=== PATIENT | male | born 1980 | race African-American/Black ===

== ENCOUNTER 2016-04-10 13:06 | Emergency (ER) | payer SELFPAY ==
[~2016-04-10] VITALS: Ht 180.3 cm; Wt 117.9 kg
[~2016-04-10 13:06] MED LIST: CYCL10TA2 PO; HYDR25TA9 PO
[2016-04-10 14:40] LABS: BASO % 1 % (0-3); EOS % 2 % (0-3); HEMATOCRIT 47.4 % (39.0-53.0); HEMOGLOBIN 16.1 g/dL (13.0-17.5); LYMPH # 2.5 x10^3/uL (1.0-4.8); LYMPH % 55 % (24-48); MEAN CORPUSCULAR HEMOGLOBIN 30 pg (25-35); MEAN CORPUSCULAR HGB CONC 34 g/dL (31-37); MEAN CORPUSCULAR VOLUME 88 fL (79-100); MONO % 7 % (0-9); NEUT % 35 % (31-73); PLATELET COUNT 177 x10^3/uL (140-400); RED BLOOD COUNT 5.37 x10^6/uL (4.30-5.70); WHITE BLOOD COUNT 4.5 x10^3/uL (4.0-11.0)
[2016-04-10] MEDS ORDERED: LIDO:MAALOX:DONNATAL 1:1:1 15 ML SINGLE DOSE SWSW ONE (14:45)
[2016-04-10] MEDS: NITROGLYCERIN SUBLINGUAL 0.4 MG BOTTLE OF 25. SL PRN ×3 (14:46→15:03)
[2016-04-10 14:59] LABS: CALCIUM 9.4 mg/dL (8.5-10.1); CREATININE 0.9 mg/dL (0.7-1.3); GFR 114.9; POTASSIUM 4.2 mmol/L (3.5-5.1)
[2016-04-10 15:04] LABS: ALBUMIN 3.9 g/dL (3.4-5.0); DIRECT BILIRUBIN 0.1 mg/dL (0.0-0.2); MAGNESIUM 1.9 mg/dL (1.8-2.4); TOTAL BILIRUBIN 0.9 mg/dL (0.2-1.0); TOTAL PROTEIN 7.6 g/dL (6.4-8.2)
[2016-04-10 15:11] LABS: CKMB INDEX 0.3 % (0-4)
--- NOTE | 2016-04-10 15:11 | RAD ---
EXAM: Chest one view. HISTORY: Chest pain. COMPARISON: 05/08/2015. FINDINGS: A frontal view of the chest is obtained. There are no confluent infiltrates. There are calcified granulomas in both nicolás and the left upper lobe. There is no pneumothorax or pleural effusion. The heart is not enlarged. IMPRESSION: 1. No confluent infiltrates.
[2016-04-10 15:15] LABS: BILIRUBIN,URINE NEGATIVE (NEG); GLUCOSE,URINE NEGATIVE (NEG); NITRITE,URINE NEGATIVE (NEG); PROTEIN,URINE NEGATIVE (NEG-TRACE); UROBILINOGEN,URINE 0.2 mg/dL (0.2 mg/dL)
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
[2016-04-10 15:25] LABS: BARBITURATES NEG (NEG); BENZODIAZEPINES NEG (NEG); CANNABINOIDS NEG (NEG); COCAINE NEG (NEG); METHADONE NEG (NEG); OPIATES NEG (NEG); PHENCYCLIDINE NEG (NEG)
[2016-04-10 15:28] LABS: BACTERIA,URINE 0 /HPF (0-FEW); RBC,URINE 0 /HPF (0-2); SQUAMOUS EPITHELIAL CELL,UR OCC /LPF; WBC,URINE OCC /HPF (0-4)
--- NOTE | 2016-04-10 15:39 | EKG ---
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
[2016-04-10 15:44] LABS: ETHANOL, URINE NEG (NEG)
[2016-04-10 16:09] VITALS: BP 111/62
== END 2016-04-10 16:18 | disposition home or self-care (01) ==
LOC: ER 13:06
DX: R07.2 Precordial pain (principal); M19.90 Unspecified osteoarthritis, unspecified site; I10 Essential (primary) hypertension; K21.9 Gastro-esophageal reflux disease without esophagitis; E78.5 Hyperlipidemia, unspecified; Z87.891 Personal history of nicotine dependence; Z79.899 Other long term (current) drug therapy; Z79.82 Long term (current) use of aspirin; Z88.8 Allergy status to other drugs, medicaments and biological substances; Z88.5 Allergy status to narcotic agent
CPT/HCPCS: 36415; 71010; 80048; 80076; 81001; 82553; 83690; 83735; 84443; 84484; 85027; 93005; 99285; G0481

== ENCOUNTER 2016-04-16 16:07 | Emergency (ER) | payer SELFPAY ==
[~2016-04-16] VITALS: Ht 180.3 cm; Wt 119.3 kg
[2016-04-16] MEDS ORDERED: FAMOTIDINE 20 MG TABLET. PO ONE (16:30)
[2016-04-16] MEDS ORDERED: LIDO:MAALOX:DONNATAL 1:1:1 15 ML SINGLE DOSE SWSW ONE (16:30)
[2016-04-16 16:35] LABS: BASO % 1 % (0-3); EOS % 2 % (0-3); HEMATOCRIT 50.1 % (39.0-53.0); HEMOGLOBIN 16.9 g/dL (13.0-17.5); LYMPH # 2.5 x10^3/uL (1.0-4.8); LYMPH % 51 % (24-48); MEAN CORPUSCULAR HEMOGLOBIN 30 pg (25-35); MEAN CORPUSCULAR HGB CONC 34 g/dL (31-37); MEAN CORPUSCULAR VOLUME 89 fL (79-100); MONO % 9 % (0-9); NEUT % 38 % (31-73); PLATELET COUNT 174 x10^3/uL (140-400); RED BLOOD COUNT 5.63 x10^6/uL (4.30-5.70); RED CELL DISTRIBUTION WIDTH 12.8 % (11.5-14.5); WHITE BLOOD COUNT 4.8 x10^3/uL (4.0-11.0)
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
[2016-04-16] MEDS ORDERED: BACL10TA PO (16:43)
[2016-04-16] MEDS ORDERED: TRAM1TAB4 PO (16:43)
[2016-04-16] MEDS ORDERED: NAPR500T3 PO (16:43)
[2016-04-16] MEDS ORDERED: PANT40TA5 PO (16:43)
[2016-04-16] MEDS ORDERED: LISI10TA2 PO (16:51)
[2016-04-16 16:54] LABS: CALCIUM 9.6 mg/dL (8.5-10.1); GFR 101.7; POTASSIUM 4.3 mmol/L (3.5-5.1)
[2016-04-16] MEDS ORDERED: OMEP20TA PO (17:25)
[2016-04-16 17:32] VITALS: BP 123/75
--- NOTE | 2016-04-17 06:11 | EKG ---
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
--- NOTE | 2016-04-17 09:00 | RAD ---
Indication: Chest pain Technique: Upright portable chest radiograph was obtained. Comparison is from April 10, 2016. Findings: The lungs are clear. The cardiopulmonary silhouette is within normal limits. The bony structures are intact. Leads overlie the patient. Impression: No active pulmonary disease.
== END 2016-04-16 17:33 | disposition home or self-care (01) ==
LOC: ER 16:07
DX: R07.89 Other chest pain (principal); I10 Essential (primary) hypertension; K21.9 Gastro-esophageal reflux disease without esophagitis; F17.210 Nicotine dependence, cigarettes, uncomplicated; F12.10 Cannabis abuse, uncomplicated; Z88.5 Allergy status to narcotic agent; Z88.8 Allergy status to other drugs, medicaments and biological substances
CPT/HCPCS: 36415; 71010; 80048; 84484; 85027; 93005; 99285-25

== ENCOUNTER 2016-07-08 07:39 | Emergency (ER) | payer SELFPAY ==
[~2016-07-08] VITALS: Ht 180.3 cm; Wt 119.3 kg
[~2016-07-08 07:39] MED LIST changes: +BACL10TA PO; +LISI10TA2 PO; +NAPR500T3 PO; +OMEP20TA8 PO; +PANT40TA5 PO; +TRAM1TAB4 PO
[2016-07-08 07:43] VITALS: BP 154/87
[2016-07-08] MEDS ORDERED: NAPROXEN 500 MG TABLET PO ONE (08:00)
[2016-07-08 08:20] LABS: NEGATIVE OBC STREP NEG; POSITIVE OBC STREP POS
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
== END 2016-07-08 08:31 | disposition home or self-care (01) ==
LOC: ER 07:39
DX: B34.9 Viral infection, unspecified (principal); J06.9 Acute upper respiratory infection, unspecified; I10 Essential (primary) hypertension; K21.9 Gastro-esophageal reflux disease without esophagitis; Z88.8 Allergy status to other drugs, medicaments and biological substances; Z88.6 Allergy status to analgesic agent
CPT/HCPCS: 87070; 87880; 99283

== ENCOUNTER 2017-02-03 09:12 | Emergency (ER) | payer SELFPAY ==
[2017-02-03 09:43] LABS: ADD MAN DIFF? NO
[2017-02-03 09:45] LABS: BASO % 1 % (0-3); EOS % 3 % (0-3); HEMATOCRIT 49.1 % (39.0-53.0); HEMOGLOBIN 16.6 g/dL (13.0-17.5); LYMPH % 51 % (24-48); MEAN CORPUSCULAR HEMOGLOBIN 30 pg (25-35); MEAN CORPUSCULAR HGB CONC 34 g/dL (31-37); MEAN CORPUSCULAR VOLUME 89 fL (79-100); MONO % 10 % (0-9); NEUT % 35 % (31-73); PLATELET COUNT 165 x10^3/uL (140-400); RED CELL DISTRIBUTION WIDTH 12.9 % (11.5-14.5); WHITE BLOOD COUNT 3.9 x10^3/uL (4.0-11.0)
[2017-02-03 09:48] LABS: BILIRUBIN,URINE NEGATIVE (NEG); GLUCOSE,URINE NEGATIVE (NEG); NITRITE,URINE NEGATIVE (NEG); PROTEIN,URINE NEGATIVE (NEG-TRACE)
[2017-02-03 09:54] LABS: BARBITURATES NEG (NEG); BENZODIAZEPINES NEG (NEG); CANNABINOIDS POS (NEG); COCAINE NEG (NEG); METHADONE NEG (NEG); OPIATES NEG (NEG); PHENCYCLIDINE NEG (NEG)
[2017-02-03 09:55] LABS: ETHANOL, URINE NEG (NEG)
[2017-02-03 09:59] LABS: ANION GAP 11 (6-14); BLOOD UREA NITROGEN 16 mg/dL (8-26); BUN/CREATININE RATIO 18 (6-20); CALCIUM 8.7 mg/dL (8.5-10.1); CARBON DIOXIDE 25 mmol/L (21-32); CHLORIDE 103 mmol/L (98-107); CREATININE 0.9 mg/dL (0.7-1.3); GFR 114.3; GLUCOSE 104 mg/dL (70-99); POTASSIUM 4.3 mmol/L (3.5-5.1); SODIUM 139 mmol/L (136-145)
[2017-02-03] MEDS: DICYCLOMINE 20 MG/2 ML AMPUL. IM (09:59)
[2017-02-03 10:04] LABS: ALK PHOS 61 U/L (46-116); ALT (SGPT) 83 U/L (16-63); AMYLASE 105 U/L (25-115); AST (SGOT) 44 U/L (15-37)
[2017-02-03 10:05] LABS: BACTERIA,URINE 0 /HPF (0-FEW); RBC,URINE 0 /HPF (0-2); SQUAMOUS EPITHELIAL CELL,UR FEW /LPF; WBC,URINE 0 /HPF (0-4)
== END 2017-02-03 10:25 | disposition home or self-care (01) ==
LOC: ER 09:12
DX: R10.84 Generalized abdominal pain (principal); R11.0 Nausea; K21.9 Gastro-esophageal reflux disease without esophagitis; I10 Essential (primary) hypertension; F17.210 Nicotine dependence, cigarettes, uncomplicated; F12.10 Cannabis abuse, uncomplicated; Z88.6 Allergy status to analgesic agent; Z88.8 Allergy status to other drugs, medicaments and biological substances
CPT/HCPCS: 36415; 80053; 80307; 81001; 82150; 83690; 85025; 96372; 99284-25; J0500

== ENCOUNTER 2019-05-17 15:18 | Emergency (ER) | payer SELFPAY ==
[~2019-05-17] VITALS: Ht 180.3 cm; Wt 99.0 kg
[~2019-05-17 15:18] MED LIST changes: +DICY10CA53 PO; +HYDR-2145 PO; -HYDR25TA9 PO; +NAPR-514 PO; -NAPR500T3 PO; -PANT40TA5 PO; +PANT40TA77 PO
[2019-05-17 15:20] VITALS: BP 149/92
[2019-05-17] MEDS ORDERED: CEPH-264 PO (16:01)
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
== END 2019-05-17 16:15 | disposition home or self-care (01) ==
LOC: ER 15:18
DX: L03.811 Cellulitis of head [any part, except face] (principal); R60.0 Localized edema; L29.9 Pruritus, unspecified; L73.9 Follicular disorder, unspecified; F12.90 Cannabis use, unspecified, uncomplicated; Z88.6 Allergy status to analgesic agent; Z88.8 Allergy status to other drugs, medicaments and biological substances; Z98.890 Other specified postprocedural states
CPT/HCPCS: 99283

== ENCOUNTER 2019-09-03 16:15 | Emergency (ER) | payer SELFPAY ==
[~2019-09-03] VITALS: Ht 180.3 cm; Wt 100.0 kg
[2019-09-03 16:15] VITALS: BP 133/81
[~2019-09-03 16:15] MED LIST changes: +CEPH-264 PO
[2019-09-03] MEDS ORDERED: NEOM10SO7 EACH EAR (16:50)
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
== END 2019-09-03 17:08 | disposition home or self-care (01) ==
LOC: ER 16:15
DX: H60.8X3 Other otitis externa, bilateral (principal); I10 Essential (primary) hypertension; F12.90 Cannabis use, unspecified, uncomplicated; Z98.890 Other specified postprocedural states; Z88.8 Allergy status to other drugs, medicaments and biological substances
CPT/HCPCS: 99283

== ENCOUNTER 2019-09-22 02:23 | Emergency (ER) | payer SELFPAY ==
[~2019-09-22] VITALS: Ht 180.3 cm; Wt 102.0 kg
[~2019-09-22 02:23] MED LIST changes: +NEOM10SO7 EACH EAR
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
[2019-09-22] MEDS ORDERED: cloNIDine HCL 0.1 MG TABLET PO ONE (04:15)
[2019-09-22 04:58] LABS: BASO % 1 % (0-3); EOS # 0.1 x10^3/uL (0.0-0.7); EOS % 2 % (0-3); HEMATOCRIT 43.8 % (39.0-53.0); LYMPH # 1.7 x10^3/uL (1.0-4.8); LYMPH % 42 % (24-48); MEAN CORPUSCULAR HEMOGLOBIN 31 pg (25-35); MEAN CORPUSCULAR HGB CONC 34 g/dL (31-37); MEAN CORPUSCULAR VOLUME 91 fL (79-100); MONO # 0.4 x10^3/uL (0.0-1.1); MONO % 9 % (0-9); NEUT # 1.8 x10^3/uL (1.8-7.7); NEUT % 46 % (31-73); PLATELET COUNT 176 x10^3/uL (140-400); RED BLOOD COUNT 4.83 x10^6/uL (4.30-5.70); RED CELL DISTRIBUTION WIDTH 12.9 % (11.5-14.5)
[2019-09-22 05:08] LABS: CALCIUM 8.8 mg/dL (8.5-10.1); CREATININE 0.9 mg/dL (0.7-1.3); GFR 112.5; POTASSIUM 4.6 mmol/L (3.5-5.1)
[2019-09-22 05:36] VITALS: BP 123/76
[2019-09-22] MEDS ORDERED: ALPR0.5T PO (05:49)
--- NOTE | 2019-09-22 07:07 | RAD ---
INDICATION: Reason: CP / Spl. Instructions: / History: COMPARISON: April 2016 FINDINGS: 2 view of chest obtained. No focal airspace consolidation or pulmonary edema. There are some calcified lymph nodes and lung nodules which can be sequela of old granulomatous disease. A definite new region of consolidation is not seen. IMPRESSION: * No focal airspace consolidation or edema. Electronically signed by: Kamaljit Diaz MD (09/22/2019 7:04 AM) [id number]
--- NOTE | 2019-09-23 12:21 | EKG ---
[facility] [address] [place] [address] Test Date: 2019-09-22 Test Time: 05:03:20 Pat Name: VINCE PRATHER Department: Room: Gender: M Deputy Administrator: : 1980 Requested By: ALO LOWE Order Number: [id number] Reading MD: Measurements Intervals Bagley Rate: P: MA: QRS: QRSD: T: QT: QTc: Interpretive Statements
== END 2019-09-22 06:10 | disposition home or self-care (01) ==
LOC: ER 02:23
DX: F41.0 Panic disorder [episodic paroxysmal anxiety] (principal); R06.02 Shortness of breath; F12.90 Cannabis use, unspecified, uncomplicated; Z98.890 Other specified postprocedural states; Z88.8 Allergy status to other drugs, medicaments and biological substances
CPT/HCPCS: 36415; 71046; 80048; 84484; 85025; 93005; 99285

== ENCOUNTER 2019-10-04 15:03 | Emergency (ER) | payer SELFPAY ==
[~2019-10-04] VITALS: Ht 180.3 cm; Wt 101.0 kg
[~2019-10-04 15:03] MED LIST changes: +ALPR0.5T PO
[2019-10-04 15:50] VITALS: BP 138/96
[2019-10-04] MEDS ORDERED: HYDR25TA PO (16:54)
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
== END 2019-10-04 17:24 | disposition home or self-care (01) ==
LOC: ER 15:03
DX: F41.9 Anxiety disorder, unspecified (principal); F12.90 Cannabis use, unspecified, uncomplicated; Z98.890 Other specified postprocedural states; Z88.8 Allergy status to other drugs, medicaments and biological substances
CPT/HCPCS: 99283

== ENCOUNTER 2019-10-26 07:59 | Emergency (ER) | payer SELFPAY ==
[~2019-10-26] VITALS: Ht 180.3 cm; Wt 102.0 kg
[~2019-10-26 07:59] MED LIST changes: +HYDR25TA PO
[2019-10-26 08:06] VITALS: BP 146/98
[2019-10-26] MEDS ORDERED: GUAI600T47 PO (08:29)
[2019-10-26] MEDS ORDERED: FLUT9.9S NS (08:29)
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
== END 2019-10-26 08:32 | disposition home or self-care (01) ==
LOC: ER 07:59
DX: J02.9 Acute pharyngitis, unspecified (principal); R09.81 Nasal congestion; F41.9 Anxiety disorder, unspecified; F12.90 Cannabis use, unspecified, uncomplicated; Z98.890 Other specified postprocedural states; Z88.8 Allergy status to other drugs, medicaments and biological substances
CPT/HCPCS: 99282

== ENCOUNTER 2019-10-28 10:04 | Emergency (ER) | payer SELFPAY ==
[~2019-10-28] VITALS: Ht 175.3 cm; Wt 103.0 kg
[~2019-10-28 10:04] MED LIST changes: +FLUT9.9S NS; +GUAI600T47 PO
--- NOTE | 2019-10-28 11:41 | RAD ---
CT HEAD WO CONTRAST History:Headaches for several days Comparison: None. Technique: Noncontrast CT imaging was performed of the head. Exposure: One or more of the following individualized dose reduction techniques were utilized for this examination: 1. Automated exposure control 2. Adjustment of the mA and/or kV according to patient size 3. Use of iterative reconstruction technique. Findings: No acute extra-axial or parenchymal hemorrhage is identified. There is no significant intra-axial mass effect, midline shift, or extra-axial fluid collection. The fontanez-white differentiation of the major vascular territories is preserved. The ventricles, sulci, and cisterns are within normal limits in size and configuration. The mastoid air cells and the visualized paranasal sinuses are mostly aerated other than a small polyp or mucous retention cyst of the right maxillary sinus about 4 mm. There is medial deviation of fat emanating from the right orbit into the region of the ethmoid air cells, evidence of old lamina papyracea fracture. No acute calvarial abnormality is identified. Impression: 1. No acute intracranial abnormality is identified. 2. There is evidence of old right lamina papyracea fracture. Electronically signed by: Tez Haley MD (10/28/2019 11:38 AM) [id number]
[2019-10-28] MEDS ORDERED: IBUPROFEN 400 MG TABLET. PO ONE ×3 (12:45→13:00)
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
[2019-10-28 13:24] VITALS: BP 130/84
[2019-10-28] MEDS ORDERED: IBUP-1060 PO (13:26)
== END 2019-10-28 14:01 | disposition home or self-care (01) ==
LOC: ER 10:04
DX: R51 Headache (principal); R09.81 Nasal congestion; F41.9 Anxiety disorder, unspecified; F12.90 Cannabis use, unspecified, uncomplicated; Z98.890 Other specified postprocedural states; Z88.8 Allergy status to other drugs, medicaments and biological substances
CPT/HCPCS: 70450; 99285

== ENCOUNTER 2019-12-12 13:16 | Emergency (ER) | payer SELFPAY ==
[~2019-12-12] VITALS: Ht 188 cm; Wt 91.0 kg
[~2019-12-12 13:16] MED LIST changes: +IBUP-1060 PO
[2019-12-12 13:26] VITALS: BP 142/90
--- NOTE | 2019-12-12 15:15 | RAD ---
KNEE 3 VIEWS LEFT Clinical Indication: Reason: L knee pain x1 month after feeling pop while doing squats / Spl. Instructions: / History: Comparison: None. Findings: There is no acute fracture or dislocation. The tricompartmental joint spaces are maintained. The patella is in anatomic position. The mineralization is normal. There is no soft tissue abnormality. There is no joint effusion. IMPRESSION: No acute fracture. Electronically signed by: Yonis Peterson MD (12/12/2019 3:12 PM) [id number]
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
[2019-12-12] MEDS ORDERED: NAPR-514 PO (15:38)
== END 2019-12-12 15:40 | disposition home or self-care (01) ==
LOC: ER 13:16
DX: M25.562 Pain in left knee (principal); R60.0 Localized edema; F12.90 Cannabis use, unspecified, uncomplicated; Z98.890 Other specified postprocedural states; Z88.8 Allergy status to other drugs, medicaments and biological substances
CPT/HCPCS: 73562; 99283

== ENCOUNTER 2019-12-21 11:54 | Emergency (ER) | payer SELFPAY ==
[~2019-12-21] VITALS: Ht 182.9 cm; Wt 90.0 kg
[2019-12-21 12:44] LABS: BASO % 0 % (0-3); EOS % 0 % (0-3); HEMATOCRIT 46.4 % (39.0-53.0); HEMOGLOBIN 15.8 g/dL (13.0-17.5); LYMPH # 1.1 x10^3/uL (1.0-4.8); LYMPH % 24 % (24-48); MEAN CORPUSCULAR HEMOGLOBIN 31 pg (25-35); MEAN CORPUSCULAR HGB CONC 34 g/dL (31-37); MEAN CORPUSCULAR VOLUME 89 fL (79-100); MONO # 0.4 x10^3/uL (0.0-1.1); MONO % 8 % (0-9); NEUT # 3.2 x10^3/uL (1.8-7.7); NEUT % 68 % (31-73); PLATELET COUNT 127 x10^3/uL (140-400); RED BLOOD COUNT 5.19 x10^6/uL (4.30-5.70); RED CELL DISTRIBUTION WIDTH 12.1 % (11.5-14.5); WHITE BLOOD COUNT 4.7 x10^3/uL (4.0-11.0)
[2019-12-21 12:48] LABS: CALCIUM 9.3 mg/dL (8.5-10.1); CREATININE 0.9 mg/dL (0.7-1.3); GFR 112.5
[2019-12-21 12:53] LABS: ALBUMIN 3.7 g/dL (3.4-5.0); ALBUMIN/GLOBULIN RATIO 0.8 (1.0-1.7); PROTHROMBIN TIME PATIENT 13.1 SEC (11.7-14.0); TOTAL BILIRUBIN 0.7 mg/dL (0.2-1.0); TOTAL PROTEIN 8.1 g/dL (6.4-8.2)
[2019-12-21 12:57] LABS: D-DIMER 0.28 ug/mlFEU (0.00-0.50)
--- NOTE | 2019-12-21 12:57 | RAD ---
Examination: PORTABLE CHEST 1V History: Reason: covid +, soa / Spl. Instructions: / History: Comparison/Correlation: 09/22/2019 two-view chest exam Findings: Portable chest x-ray exam was performed. Gastrografin is present. I size and pulmonary vasculature are normal. No definite infiltrate or effusion. Bony structures are unremarkable. No pneumothorax. Impression: No definite infiltrate. Electronically signed by: Estuardo Coleman MD (12/21/2019 12:54 PM) [id number]
[2019-12-21 13:20] LABS: BASE EXCESS COOX -1 mmol/L (-3-3); HCO3 COOX 23 mmol/L (21-28); METHEMOGLOBIN 0.4 % (0.0-1.9); OXYHEMOGLOBIN 94.8 %; PCO2 COOX 35 mmHg (35-46); PO2 COOX 76 mmHg (75-108); SAT O2 COOX 95 % (92-99)
[2019-12-21 13:32] LABS: BILIRUBIN,URINE NEGATIVE (NEG); CLARITY,URINE CLEAR; COLOR,URINE YELLOW; NITRITE,URINE NEGATIVE (NEG); PROTEIN,URINE NEGATIVE (NEG-TRACE)
[2019-12-21 13:42] LABS: BACTERIA,URINE 0 /HPF (0-FEW); RBC,URINE RARE /HPF (0-2); WBC,URINE 0 /HPF (0-4)
[2019-12-21 13:45] VITALS: BP 143/89
[2019-12-21] MEDS ORDERED: ALBU2.5V8 INH (13:54)
[2019-12-21] MEDS ORDERED: AZIT250T6 PO (13:54)
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
[2019-12-21] MEDS ORDERED: IBUPROFEN 200 MG TABLET. PO ONE (14:00)
--- NOTE | 2019-12-21 14:12 | EKG ---
[facility] [address] [place] [address] Test Date: 2019-12-21 Test Time: 12:17:25 Pat Name: VINCE PRATHER Department: Room: Gender: M [employer]ist: : 1980 Requested By: JSOE BARTLETT Order Number: [id number] Reading MD: Measurements Intervals [place] Rate: 101 P: 18 OK: 158 QRS: 55 QRSD: 84 T: 20 QT: 300 QTc: 395 Interpretive Statements SINUS TACHYCARDIA QRS(T) CONTOUR ABNORMALITY CONSISTENT WITH ANTEROSEPTAL INFARCT PROBABLY OLD ABNORMAL ECG RI6.02 No previous ECG available for comparison
== END 2019-12-21 14:15 | disposition home or self-care (01) ==
LOC: ER 11:54
DX: U07.1 COVID-19 (principal); R06.02 Shortness of breath; F41.9 Anxiety disorder, unspecified; R11.0 Nausea; R19.7 Diarrhea, unspecified; R51.9 Headache, unspecified; Z88.5 Allergy status to narcotic agent; Z88.6 Allergy status to analgesic agent
CPT/HCPCS: 36415; 36600; 71045; 80053; 81001; 82805; 84484; 85025; 85379; 85610; 93005; 99285-25

== ENCOUNTER 2019-12-23 04:15 | Emergency (ER) | payer SELFPAY ==
[~2019-12-23] VITALS: Ht 180.3 cm; Wt 106.0 kg
[~2019-12-23 04:15] MED LIST changes: +ALBU2.5V8 INH; +AZIT250T6 PO
[2019-12-23] MEDS ORDERED: BUTA1TAB23 PO (07:56)
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
[2019-12-23] MEDS ORDERED: KETOROLAC 30 MG/ML VIAL. IM ONE (08:00)
[2019-12-23] MEDS ORDERED: ONDANSETRON ODT 4 MG TAB.RAPDIS. PO ONE (08:00)
[2019-12-23] MEDS ORDERED: BUTALB/APAP/CAFEIN 50/325/40MG TABLET. PO ONE (08:00)
[2019-12-23 08:08] VITALS: BP 152/78
== END 2019-12-23 08:00 | disposition home or self-care (01) ==
LOC: ER 04:15
DX: U07.1 COVID-19 (principal); R51.9 Headache, unspecified; R06.02 Shortness of breath; R50.9 Fever, unspecified; F41.9 Anxiety disorder, unspecified; E78.00 Pure hypercholesterolemia, unspecified; I10 Essential (primary) hypertension; F12.90 Cannabis use, unspecified, uncomplicated; Z98.890 Other specified postprocedural states; Z87.891 Personal history of nicotine dependence; Z88.8 Allergy status to other drugs, medicaments and biological substances
CPT/HCPCS: 96372; 99283; J1885

== ENCOUNTER 2020-02-21 21:22 | Emergency (ER) | payer SELFPAY ==
[~2020-02-21] VITALS: Ht 180.3 cm; Wt 96.8 kg
[~2020-02-21 21:22] MED LIST changes: +BUTA1TAB23 PO
[2020-02-21 22:30] LABS: BASO % 1 % (0-3); EOS # 0.1 x10^3/uL (0.0-0.7); EOS % 3 % (0-3); HEMATOCRIT 42.4 % (39.0-53.0); HEMOGLOBIN 14.7 g/dL (13.0-17.5); LYMPH # 2.9 x10^3/uL (1.0-4.8); LYMPH % 62 % (24-48); MEAN CORPUSCULAR HEMOGLOBIN 31 pg (25-35); MEAN CORPUSCULAR HGB CONC 35 g/dL (31-37); MEAN CORPUSCULAR VOLUME 89 fL (79-100); MONO # 0.3 x10^3/uL (0.0-1.1); MONO % 6 % (0-9); NEUT # 1.3 x10^3/uL (1.8-7.7); NEUT % 29 % (31-73); PLATELET COUNT 159 x10^3/uL (140-400); RED BLOOD COUNT 4.78 x10^6/uL (4.30-5.70); RED CELL DISTRIBUTION WIDTH 13.1 % (11.5-14.5); WHITE BLOOD COUNT 4.7 x10^3/uL (4.0-11.0)
[2020-02-21 22:38] LABS: CALCIUM 8.8 mg/dL (8.5-10.1); GFR 99.6; POTASSIUM 3.8 mmol/L (3.5-5.1)
[2020-02-21 22:43] LABS: ALBUMIN 3.6 g/dL (3.4-5.0); MAGNESIUM 2.3 mg/dL (1.8-2.4); TOTAL BILIRUBIN 0.8 mg/dL (0.2-1.0); TOTAL PROTEIN 7.2 g/dL (6.4-8.2)
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
[2020-02-21] MEDS ORDERED: KETOROLAC 15 MG/ML VIAL. IVP ONE (23:00)
[2020-02-21] MEDS ORDERED: IV NORMAL SALINE 1000ML BAG 1,000 ML IV ONE (23:00)
[2020-02-21] MEDS ORDERED: ASPIRIN 325 MG TABLET PO ONE (23:00)
--- NOTE | 2020-02-21 23:29 | RAD ---
Exam: Chest 2 views INDICATION: Chest pain TECHNIQUE: Frontal and lateral views of the chest Comparisons: 12/21/2019 FINDINGS: The cardiomediastinal silhouette and pulmonary vessels are within normal limits. The lung and pleural spaces are clear. IMPRESSION: No acute cardiopulmonary process. Electronically signed by: Brannon Rios MD (02/21/2020 11:27 PM) RUTH
[2020-02-22 00:23] VITALS: BP 142/96
--- NOTE | 2020-02-22 15:18 | EKG ---
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
== END 2020-02-22 00:25 | disposition home or self-care (01) ==
LOC: ER 21:22
DX: R07.89 Other chest pain (principal); R00.2 Palpitations; H53.8 Other visual disturbances; F41.9 Anxiety disorder, unspecified; E78.00 Pure hypercholesterolemia, unspecified; I10 Essential (primary) hypertension; F12.90 Cannabis use, unspecified, uncomplicated; Z98.890 Other specified postprocedural states; Z88.8 Allergy status to other drugs, medicaments and biological substances
CPT/HCPCS: 36415; 71046; 80053; 82553; 83690; 83735; 83880; 84484; 85025; 85379; 93005; 96361; 96374; 99285; J1885; J7030

== ENCOUNTER 2020-03-14 11:14 | Emergency (ER) | payer SELFPAY ==
[~2020-03-14] VITALS: Ht 180.3 cm; Wt 97.7 kg
[~2020-03-14 11:14] MED LIST changes: +LISI10TA16 PO; -LISI10TA2 PO
[2020-03-14] MEDS ORDERED: ASPIRIN CHEWABLE 81 MG TABLET. PO ONE (12:15)
[2020-03-14 12:32] LABS: BARBITURATES NEG (NEG); BENZODIAZEPINES NEG (NEG); CANNABINOIDS NEG (NEG); COCAINE NEG (NEG); METHADONE NEG (NEG); OPIATES NEG (NEG); PHENCYCLIDINE NEG (NEG)
[2020-03-14 12:34] LABS: AMPHETAMINE/METHAMPHETAMINE NEG (NEG)
[2020-03-14 12:35] LABS: BASO % 1 % (0-3); EOS # 0.1 x10^3/uL (0.0-0.7); EOS % 2 % (0-3); HEMATOCRIT 42.7 % (39.0-53.0); HEMOGLOBIN 14.8 g/dL (13.0-17.5); LYMPH % 62 % (24-48); MEAN CORPUSCULAR HEMOGLOBIN 31 pg (25-35); MEAN CORPUSCULAR HGB CONC 35 g/dL (31-37); MEAN CORPUSCULAR VOLUME 90 fL (79-100); MONO # 0.3 x10^3/uL (0.0-1.1); MONO % 8 % (0-9); NEUT # 0.9 x10^3/uL (1.8-7.7); NEUT % 27 % (31-73); PLATELET COUNT 169 x10^3/uL (140-400); RED BLOOD COUNT 4.77 x10^6/uL (4.30-5.70); RED CELL DISTRIBUTION WIDTH 13.6 % (11.5-14.5); WHITE BLOOD COUNT 3.3 x10^3/uL (4.0-11.0)
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
--- NOTE | 2020-03-14 12:43 | RAD ---
PA and lateral chest. HISTORY: Left chest pain PA and lateral views were taken of the chest. Lungs are free of infiltrates. Heart is normal in size. There is no effusion. There is a granuloma on the left. IMPRESSION: 1. No acute chest disease. Electronically signed by: Arslan Burciaga MD (03/14/2020 12:40 PM) [facility]
[2020-03-14 12:44] LABS: CREATININE 0.9 mg/dL (0.7-1.3); GFR 112.5; POTASSIUM 4.5 mmol/L (3.5-5.1)
[2020-03-14 12:49] LABS: ALBUMIN 3.8 g/dL (3.4-5.0); ALBUMIN/GLOBULIN RATIO 1.3 (1.0-1.7); TOTAL BILIRUBIN 0.9 mg/dL (0.2-1.0); TOTAL PROTEIN 6.8 g/dL (6.4-8.2)
[2020-03-14 13:20] LABS: % ATYL 3 % (0-0); % BASOS 2 % (0-3); % EOS 3 % (0-5); % LYMPHS 52 % (24-48); % MONOS 5 % (0-10); % SEGS 35 % (35-66); PLT ESTIMATE ADEQUATE (ADEQUATE)
[2020-03-14 13:54] LABS: MONONUCLEOSIS PATIENT NEGATIVE (NEGATIVE)
[2020-03-14] MEDS ORDERED: KETOROLAC 30 MG/ML VIAL. IVP ONE (14:15)
[2020-03-14 14:18] LABS: BILIRUBIN,URINE NEGATIVE (NEG); CLARITY,URINE CLEAR; COLOR,URINE YELLOW; NITRITE,URINE NEGATIVE (NEG); PH,URINE 8.5 (<5.0-8.0); PROTEIN,URINE 30 mg/dL (NEG-TRACE)
[2020-03-14 14:29] LABS: BACTERIA,URINE FEW /HPF (0-FEW); RBC,URINE OCC /HPF (0-2); WBC,URINE OCC /HPF (0-4)
[2020-03-14] MEDS ORDERED: HYDR25TA PO (15:48)
[2020-03-14 15:49] VITALS: BP 123/80
--- NOTE | 2020-03-15 12:03 | EKG ---
[facility] [address] [place] [address] Test Date: 2020-03-14 Test Time: 11:59:27 Pat Name: VINCE PRATHER Department: Patient ID: 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
== END 2020-03-14 15:51 | disposition home or self-care (01) ==
LOC: ER 11:14
DX: R07.89 Other chest pain (principal); F41.9 Anxiety disorder, unspecified; E78.00 Pure hypercholesterolemia, unspecified; I10 Essential (primary) hypertension; F12.90 Cannabis use, unspecified, uncomplicated; Z98.890 Other specified postprocedural states; Z87.891 Personal history of nicotine dependence; Z88.8 Allergy status to other drugs, medicaments and biological substances
CPT/HCPCS: 36415; 71046; 80053; 80307; 81001; 83690; 83880; 84484; 85007; 85025; 85379; 86308; 93005; 96374; 99285; J1885

== ENCOUNTER 2020-04-22 23:17 | Emergency (ER) | payer SELFPAY ==
[~2020-04-22] VITALS: Ht 188 cm; Wt 102.2 kg
[2020-04-22 23:41] VITALS: BP 132/82
[2020-04-23] MEDS ORDERED: PRED20TA PO (00:19)
[2020-04-23] MEDS ORDERED: ACET1TAB33 PO (00:19)
[2020-04-23] MEDS ORDERED: methylPREDNISolone SOD SUCC PF 125 MG/2 ML VIAL. IM ONE (00:30)
[2020-04-23] MEDS ORDERED: KETOROLAC 60 MG/2 ML VIAL. IM ONE (00:30)
[2020-04-23] MEDS ORDERED: KETOROLAC 60 MG/2 ML VIAL. ONE (00:31)
[2020-04-23] MEDS ORDERED: methylPREDNISolone SOD SUCC PF 125 MG/2 ML VIAL. ONE (00:31)
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
== END 2020-04-23 00:44 | disposition home or self-care (01) ==
LOC: ER 23:17
DX: R07.81 Pleurodynia (principal); F41.9 Anxiety disorder, unspecified; E78.00 Pure hypercholesterolemia, unspecified; I10 Essential (primary) hypertension; F12.90 Cannabis use, unspecified, uncomplicated; Z98.890 Other specified postprocedural states; Z88.8 Allergy status to other drugs, medicaments and biological substances
CPT/HCPCS: 96372; 99284; J1885; J2930

== ENCOUNTER 2020-07-13 01:39 | Emergency (ER) | payer BC ==
[~2020-07-13] VITALS: Ht 180.3 cm; Wt 104.5 kg
[~2020-07-13 01:39] MED LIST changes: +ACET1TAB33 PO; +PRED20TA PO
[2020-07-13 02:10] VITALS: BP 139/95
--- NOTE | 2020-07-13 03:21 | EKG ---
[facility] [address] [place] [address] Test Date: 2020-07-13 Test Time: 03:02:55 Pat Name: VINCE PRATHER Department: Room: Gender: M Soup Person: : 1980 Requested By: BEN ROBLES Order Number: [id number] Reading MD: Measurements Intervals [place] Rate: 58 P: 45 MT: 196 QRS: 35 QRSD: 84 T: 27 QT: 406 QTc: 402 Interpretive Statements SINUS RHYTHM LOW LIMB LEAD VOLTAGE QRS(T) CONTOUR ABNORMALITY CONSISTENT WITH ANTEROSEPTAL INFARCT AGE UNDETERMINED ABNORMAL ECG RI6.02 No previous ECG available for comparison
[2020-07-13] MEDS ORDERED: LIDOCAINE (700MG/PATCH) PATCH. TD ONE (03:30)
[2020-07-13] MEDS ORDERED: METHOCARBAMOL 750 MG TABLET PO ONE (03:30)
[2020-07-13] MEDS ORDERED: METH-561 PO (04:12)
[2020-07-13] MEDS ORDERED: LIDO700A21 TP (04:12)
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
== END 2020-07-13 05:05 | disposition home or self-care (01) ==
LOC: ER 01:39
DX: R07.81 Pleurodynia (principal); G89.29 Other chronic pain; I10 Essential (primary) hypertension; E78.00 Pure hypercholesterolemia, unspecified; F17.200 Nicotine dependence, unspecified, uncomplicated; Z88.5 Allergy status to narcotic agent; Z88.6 Allergy status to analgesic agent
CPT/HCPCS: 93005; 99284

== ENCOUNTER 2020-10-29 19:28 | Emergency (ER) | payer BC ==
[~2020-10-29 19:28] MED LIST changes: +LIDO700A21 TP; +METH-561 PO
== END 2020-10-30 01:02 | disposition left against medical advice (07) ==
LOC: ER 19:28
DX: M79.2 Neuralgia and neuritis, unspecified (principal); Z53.21 Procedure and treatment not carried out due to patient leaving prior to being seen by health care provider